=== PATIENT | female | born 1970 | race Caucasian/White ===

== ENCOUNTER 2021-09-04 05:43 | Outpatient (CLI) | payer OTHER ==
[~2021-09-04] VITALS: Ht 154.9 cm; Wt 63.0 kg
[2021-09-04] MEDS ORDERED: METO50TA15 PO (16:29)
[2021-09-04] MEDS ORDERED: ATOR20TA66 PO (16:29)
[2021-09-04] MEDS ORDERED: LEVO125C4 PO (16:29)
[2021-09-04] MEDS ORDERED: OMEP40CA6 PO (16:29)
[2021-09-04] MEDS ORDERED: ASPI-808 PO (16:29)
== END 2021-09-04 16:46 | disposition home or self-care (01) ==
LOC: PREOP 05:43
PROVIDERS: ATTEND Otolaryngology Otolaryngology/Facial Plastic Surgery
DX: Z01.818 Encounter for other preprocedural examination (principal)

== ENCOUNTER 2021-09-11 09:49 | Day surgery (SDC) | payer OTHER ==
[2021-09-11] VITALS (10 sets, daily range): BP systolic 107–136; BP diastolic 59–82
[~2021-09-11] VITALS: Ht 154.9 cm; Wt 63.0 kg
[~2021-09-11 09:49] MED LIST: ASPI-808 PO; ATOR20TA66 PO; LEVO125C4 PO; METO50TA15 PO; OMEP40CA6 PO
--- OUTSIDE RECORDS SUMMARY | 2021-09-11 09:54 | XMS REPORT | Clinical Summary ---
Author Author [facility] Organization [facility] Address Unknown Phone Unavailable Care Team Providers Care Toe Pounder Name Role Phone Reva Will MD Unavailable Karolyn, Allan Provider Unavailable Unavailable Aashish Garcia DO PCP Source Comments Some departments are not documenting in the electronic medical record. If you d o not see the information that you expected, contact Release of Information in [facility] Information Management department at [phone] for further assistan ce in locating additional records.[facility] Allergies Comments Active Allergy Reactions Severity Noted Date Penicillin G UNKNOWN 12/20/2013 Medications End Date Status Medication Sig Dispensed Refills Start Date Active bisacodyl (DULCOLAX) 5 mg Take 5 mg by 0 tablet mouth every 24 hours as needed. Active levothyroxine (SYNTHROID) Take 50 mcg 0 50 mcg tablet by mouth daily. Active polyethylene glycol 3350 Take 17 g by 0 (GLYCOLAX; MIRALAX) 17 mouth twice gram/dose powder daily. Active erythromycin Take 200 mg 0 ethylsuccinate (EES) 200 by mouth mg/5 mL oral suspension three times daily before meals. Active linaclotide (LINZESS) 145 Take 1 Cap by 30 Cap 3 mcg cap mouth daily. 4 Active hyoscyamine (LEVSIN) Take 1 Tab by 45 Tab 1 0.125 mg tablet mouth every 8 4 hours as needed for Cramps. Active Problems Problem Noted Date Gastroparesis 05/09/2014 Nausea 01/17/2014 Abdominal pain 01/11/2014 Constipation 01/11/2014 History of diverticulitis of colon 01/11/2014 Surgical History Surgery Date Site/Laterality Comments HX SURGERY gall stones removed Medical History Medical History Date Comments Gall stones Social History Date Tobacco Use Types Packs/Day Years Used Never Smoker Comments Alcohol Use Standard Drinks/Week No 0 (1 standard drink = 0.6 o z pure alcohol) Sex Assigned at Date Recorded Not on file Last Filed Vital Signs Reading Time Taken Comments Vital Sign 123/75 05/09/2014 12:55 PM CDT Blood Pressure 80 05/09/2014 12:55 PM CDT Pulse 36.8 C (98.3 F) 05/09/2014 12:55 PM CDT Temperature 16 05/09/2014 12:55 PM CDT Respiratory Rate - - Oxygen Saturation - - Inhaled Oxygen Concentration 61.2 kg (135 lb) 05/09/2014 12:55 PM CDT Weight 154.9 cm (5' 1") 05/09/2014 12:55 PM CDT Height 25.51 05/09/2014 12:55 PM CDT Body Mass Index Plan of Treatment Health Maintenance Due Date Last Done Comments HIV SCREENING 1986 DTAP/TDAP VACCINES (1 - 1989 Tdap) HEPATITIS C SCREENING 1989 PHYSICAL (COMPREHENSIVE) 1989 EXAM CERVICAL CANCER SCREENING 1992 BREAST CANCER SCREENING 2011 INFLUENZA VACCINE 04/15/2021 COLORECTAL CANCER 2021 SCREENING SHINGLES RECOMBINANT 2021 VACCINE (1 of 2) Results Not on filefrom Last 3 Months Insurance Type Payer Benefit Subscriber ID Effective Phone Address Plan / Dates Group PPO [employer] KENEDY [id number] 2013- [phone] [address] [place] [address] Advance Directives Patient [employer] Explanation Type Date Recorded Advance 12/20/2013 9:38 AM Directive/DPOA Care Teams Start Date End Date Toe Pounder Relationship Specialty 12/28/13 Aashish Garcia, DO PCP - General Family [address] [place] [id number] 12/20/13 Reva Will MD [facility] [address] [facility] [address] [place] [address] 12/21/13 Karolyn, Generic Provider
[2021-09-11] MEDS: LACTATED RINGERS 1,000 ML IV PRN ×2 (10:45→14:21)
[2021-09-11] MEDS ORDERED: LIDOCAINE PF 2% 5 ML (XYLOCAINE) VIAL ONE (12:13)
[2021-09-11] MEDS ORDERED: ROCURONIUM 10 MG/ML 5 ML SYRINGE IV ONE (12:13)
[2021-09-11] MEDS ORDERED: proPOfol 200 MG/20 ML (DIPRIVAN) VIAL IV ONE (12:13)
[2021-09-11] MEDS ORDERED: fentaNYL INJ 100 MCG/2 ML AMP ONE (12:13)
[2021-09-11] MEDS ORDERED: MIDAZOLAM 2 MG/2 ML (VERSED) VIAL ONE (12:14)
[2021-09-11] MEDS ORDERED: LIDOCAINE/EPI 1%-1:200,000 (XYLOCAINE) 30 ML VIAL ONE (12:16)
--- NOTE | 2021-09-11 12:54 | Progress Note-Pre Operative ---
Pre-Operative Progress Note H&P Reviewed The H&P was reviewed, patient examined and no changes noted. Date Seen by Provider: Sep 11, 2021 Time Seen by Provider: 12:45 Date H&P Reviewed: Sep 11, 2021 Time H&P Reviewed: 12:45 Pre-Operative Diagnosis: Unilateral Left Throat YUNG Gilliam MD Sep 11, 2021 12:54
--- NOTE | 2021-09-11 12:54 | Progress Note-Post Operative ---
Post-Operative Progess Note Surgeon (s)/Whirley Operator (s) Surgeon YUNG ALDRIDGE MD Whirley Operator n/a Pre-Operative Diagnosis Unilateral Left Throat paitn Post-Operative Diagnosis same Post-Op Procedure Note Date of Procedure: Sep 11, 2021 Name of Procedure Performed: Left Tonsillectomy, Direct Laryngoscopy Description & Findings Description and Findings: n/a Anesthesia Type get Estimated Blood Loss minimal Packing none. Specimen(s) collected/removed left tonsil YUNG ALDRIDGE MD Sep 11, 2021 12:54
[2021-09-11] MEDS ORDERED: APAP 325 MG/10.15 ML LIQ (TYLENOL) UDC PO PRN (13:00)
[2021-09-11] MEDS ORDERED: NS IV 1000 ML 1,000 ML IV SCH (13:00)
[2021-09-11] MEDS ORDERED: HYDROcodone/APAP 7.5MG-325 MG/15 ML (LORTAB) UDC PO PRN (13:00)
[2021-09-11] MEDS ORDERED: SEVOFLURANE (ULTANE) 15 ML INHAL SOLN ONE (13:14)
[2021-09-11] MEDS ORDERED: NEOSTIGMINE 3 MG/3 ML VIAL ONE (13:15)
[2021-09-11] MEDS ORDERED: GLYCOPYRROLATE 0.2 MG/ML (ROBINUL) 2 ML VIAL ONE (13:15)
--- NOTE | 2021-09-11 13:57 | Anesthesia-General Post-Op ---
General Patient Condition Mental Status/LOC: Same as Preop Cardiovascular: Satisfactory Nausea/Vomiting: Absent Respiratory: Satisfactory Pain: Controlled Complications: Absent Post Op Complications Complications None Follow Up Care/Instructions Patient Instructions None needed. Anesthesia/Patient Condition Patient Condition Patient is doing well, no complaints, stable vital signs, no apparent adverse anesthesia problems. No complications reported per nursing. NOEL SEVILLA CRNA Sep 11, 2021 13:57
[2021-09-11] MEDS ORDERED: TETRACAINESUCKERS MT (16:41)
[2021-09-11] MEDS ORDERED: HYDR15SO8 PO (16:41)
[2021-09-11] MEDS ORDERED: AMOX250S5 PO (16:41)
[2021-09-11] MEDS ORDERED: PRELONE (16:56)
== END 2021-09-11 17:15 | disposition home or self-care (01) ==
LOC: SDC 09:49
PROVIDERS: ATTEND Otolaryngology Otolaryngology/Facial Plastic Surgery
DX: R07.0 Pain in throat (principal); J35.1 Hypertrophy of tonsils; E78.5 Hyperlipidemia, unspecified; I48.91 Unspecified atrial fibrillation; G43.909 Migraine, unspecified, not intractable, without status migrainosus; Z79.899 Other long term (current) drug therapy
CPT/HCPCS: 84703; 87081